=== PATIENT | male | born 1960 | race Caucasian/White ===

== ENCOUNTER 2023-08-17 05:31 | Emergency (ER) | payer SELFPAY ==
[2023-08-17 05:58] VITALS: BP 123/60
[2023-08-17 06:16] VITALS: BMI 31.6
[2023-08-17 06:22] VITALS: BP 138/88
--- NOTE | 2023-08-17 06:29 | ED.GENMED ---
History of Present Illness
General
Chief Complaint: Breathing Problem
Source: patient
Time Seen by Provider: 08/17/23 06:25
Travel History
Have you had any contact with someone who has COVID-19?: Yes
Comment: Roommate
Do you have any symptoms of coronavirus? Fever > 100 degrees, chills, cough, shortness of breath, sore throat, loss of taste or smell, muscle aches, or headache?: Yes
Symptoms:: cough, SOB
History of Present Illness
History of Present Illness:
62-year-old male presents to the emergency room complaining of shortness of breath, cough, chest discomfort which has been present over the past several days. Patient's roommate had COVID a week or so ago. Patient denies nausea or vomiting. He
does not have chronic asthma or lung disease.
Phy Exam
Physical Exam
Physical Exam:
General: Awake, Alert, Oriented X3. No acute distress.
Vitals: unremarkable
Head: Atraumatic
Eyes: Pupils equal, EOMI
Throat: Airway intact, no exudates
Neck: Trachea midline
Lungs: Some expiratory wheezing, right lower lobe rhonchi
Heart: Regular rate, no murmurs
Abd: Soft, Nontender, No pulsatile mass
Neuro: Nonfocal
Skin: Warm, dry, no rash
Extremities: pulses equal b/l, no edema
Scores
Heart Failure Risk
Heart Failure Risk Score: Not Applicable
Course
Orders/Labs/Results
Orders:
Orders
08/17/23 06:09
CR Chest - 2 Views Urgent
Comment:
Reason For Exam: sob
08/17/23 06:23
COVID-19 Antigen Urgent
Source: Nasal Swab
Influenza A+B Rapid Molecular Urgent
GODFREY Source: Nasal Swab
Specimen Description:
08/17/23 06:25
EKG [Electrocardiogram (*1)] Urgent
Reason for Study: Chest Pain
08/17/23 06:26
EKG- Treatment ONCE
08/17/23 06:29
Ipratropium/Albuterol Sulfate [Duoneb] 3 ml INH R NOW STA
Vital Signs
Initial and Last Documented VS:
Initial Vital Signs
Temp Pulse Resp BP Pulse Ox
99.0 F 80 24 123/60 92
08/17/23 05:58 08/17/23 05:58 08/17/23 05:58 08/17/23 05:58 08/17/23 05:58
Last Documented Vital Signs
Temp Pulse Resp BP Pulse Ox
99.0 F 91 18 119/72 95
08/17/23 05:58 08/17/23 09:16 08/17/23 09:16 08/17/23 09:00 08/17/23 09:19
MDM/Problems Addressed
Differential Diagnosis Includes:
COVID, influenza, acute bronchitis, pneumonia
MDM/Problems Addressed:
Patient presents with cough, malaise, chills. Workup here shows influenza positive. Chest x-ray reviewed by myself I see no acute abnormalities. Radiology questions a area of infiltrate. Given the patient's flu positive state I think this
reasonably explains his symptoms. No antibiotics indicated at this time.
*Radiology
Radiology exam reviewed: preliminary read by ED provider (I reviewed the patient's chest x-ray see no acute disease) and radiology read reviewed
*Pulse Oximetry
Patient hypoxic: no
*Critical Care Note
Total Time (30-74mins, 75-104mins- exclusive of procedures): Not Applicable
ED Attending Note
-
Portions of this chart may have been created with voice recognition software.� Occasional wrong word or��sound alike� substitutions may have occurred due to the inherent limitations of voice recognition software.
Discharge Plan
Departure
Patient Disposition: Home (Routine Discharge)
Date of Disposition: 08/17/23
Time of Disposition: 09:21
Patient with high blood pressure during this ER visit?: No
Condition: Good
Discharge Problem:
Influenza, Acute bronchospasm
Instructions: Wheezing, Flu, Adult ED
Prescriptions:
New
albuterol sulfate [ProAir HFA] 90 mcg/actuation HFA aerosol inhaler
4 puff inhalation Q4HPRN PRN (Reason: shortness of breath) Qty: 8.5 0RF
Referrals:
John Austin MD [Family Provider] -
Interventions
Interventions:
*Risk Screen - Suicide Last Done: 08/17/23 06:16
*General Assessment Last Done: 08/17/23 05:58
*Neglect/Abuse Screening Last Done: 08/17/23 05:58
ED- Fall Risk Assessment Last Done: 08/17/23 05:58
*ED COVID-19 Vaccine History Last Done: 08/17/23 05:58
*Nursing Disposition Last Done: 08/17/23 09:30
ED- Cardiac Assessment Last Done: 08/17/23 06:16
ED- Pulmonary Assessment Last Done: 08/17/23 06:16
Discharge Date and Time
Discharge Date/Time: 08/17/23 09:30
[2023-08-17] MEDS: DUONEB 3 ML INH (06:33)
[2023-08-17 06:57] LABS: COVID-19 Antigen Negative (Negative)
[2023-08-17 07:00] VITALS: BP 127/74
[2023-08-17 08:26] VITALS: BP 118/75
[2023-08-17 09:00] VITALS: BP 119/72
== END 2023-08-17 09:30 | disposition home or self-care (01) ==
LOC: EMR 05:31
PROVIDERS: EMERGENCY PHYSICIAN Emergency Medicine; FAMILY PHYSICIAN Family Medicine
DX: J10.1 Influenza due to other identified influenza virus with other respiratory manifestations (principal); J98.01 Acute bronchospasm; Z11.52 Encounter for screening for COVID-19; Z20.822 Contact with and (suspected) exposure to COVID-19
CPT/HCPCS: 99283; 94640; 71046; 87502; 87811; 93005